=== PATIENT | male | born 1970 | race Two or more races ===

== ENCOUNTER 2021-01-07 12:27 | Inpatient (IN) | payer OTHER ==
--- NOTE | 2021-01-07 14:09 | XR ---
EXAMINATION TYPE: XR chest 1V portable DATE OF EXAM: 01/07/2021 COMPARISON: NONE HISTORY: Covid 19 positive, pneumonia TECHNIQUE: Single frontal view of the chest is obtained. FINDINGS: Bilateral patchy airspace disease is noted. There is no evident pneumothorax or pleural ef fusion. Cardiac and mediastinal silhouette within normal limits accounting for rotation. IMPRESSION: Findings consistent with patient's history of covid pneumonia.
[2021-01-07 14:25] LABS: ALT 28 U/L (4-49); AST 39 U/L (17-59); African American GFR (CKD) >90 (>60 ml/min/1.73 sqM); Albumin 3.7 g/dL (3.5-5.0); Alkaline Phosphatase 66 U/L (38-126); Anion Gap 10 mmol/L; Blood Urea Nitrogen 17 mg/dL (9-20); Calcium 8.8 mg/dL (8.4-10.2); Carbon Dioxide 28 mmol/L (22-30); Chloride 100 mmol/L (98-107); Glucose 124 mg/dL (74-99); LDH 1089 U/L (313-618); Magnesium 2.6 mg/dL (1.6-2.3); Non-African American GFR(CKD) >90 (>60 ml/min/1.73 sqM); Potassium 3.3 mmol/L (3.5-5.1); Sodium 138 mmol/L (137-145); Total Bilirubin 1.1 mg/dL (0.2-1.3); Total Protein 6.7 g/dL (6.3-8.2)
--- NOTE | 2021-01-07 14:26 | ED ---
General Adult HPI - General Chief complaint: Shortness of Breath Stated complaint: DEVORA,Covid Positive Source: patient Mode of arrival: ambulatory Limitations: no limitations - History of Present Illness Initial comments: 50-year-old male presents to the emergency room for a chief complaint of covid symptoms. Patient states that he tested positive for coronavirus 9 ago and had symptoms developed about 12 days ago. States this started as GI symptoms and then progressed to upper respiratory symptoms. For the past 2 days patient has felt short of breath. In the waiting room patient was found to be at 84% room air and was started on oxygen at 4 L keeping him around 92%. Patient is not immunized nor did he receive antibodies.Patient has no other complaints at this time including chest pain, abdominal pain, nausea or vomiting, headache, or visual changes. - Related Data Home Medications Medication Instructions Recorded Confirmed Ascorbic Acid [Vitamin C] 1,000 mg PO DAILY 01/07/21 01/07/21 Ferrous Sulfate [Feosol] 325 mg PO DAILY 01/07/21 01/07/21 Multivitamins, Thera [Multivitamin 1 tab PO DAILY 01/07/21 01/07/21 (formulary)] Naproxen 500 mg PO BID 01/07/21 01/07/21 Omeprazole [PriLOSEC] 20 mg PO AC-BID 01/07/21 01/07/21 Sildenafil Citrate [Viagra] 50 mg PO DAILY PRN 01/07/21 01/07/21 Zinc 50 mg PO DAILY 01/07/21 01/07/21 amLODIPine BESYLATE/BENAZEPRIL 2 tab PO DAILY 01/07/21 01/07/21 [amLODIPine BESYLATE/BENAZEPRIL 5-10 mg] Allergies Allergy/AdvReac Type Severity Reaction Status Date / Time No Known Allergies Allergy Verified 01/07/21 14:58 Review of Systems ROS Statement: Those systems with pertinent positive or pertinent negative responses have been documented in the HPI. ROS Other: All systems not noted in ROS Statement are negative. Past Medical History Past Medical History: Hypertension Past Surgical History: No Surgical Hx Reported Past Psychological History: No Psychological Hx Reported Smoking Status: Former smoker Past Alcohol Use History: None Reported Past Drug Use History: None Reported - Past Family History Father Family Medical History: Unable to Obtain Mother Family Medical History: COPD Additional Family Medical History / Comment(s): smoking, pneumonia General Exam Limitations: no limitations General appearance: alert, in no apparent distress Head exam: Present: atraumatic Eye exam: Present: normal appearance, PERRL, EOMI. Absent: scleral icterus, conjunctival injection ENT exam: Present: normal exam, mucous membranes moist Neck exam: Present: normal inspection, full ROM. Absent: tenderness Respiratory exam: Present: normal lung sounds bilaterally. Absent: respiratory distress, wheezes Cardiovascular Exam: Present: regular rate, normal rhythm, normal heart sounds GI/Abdominal exam: Present: soft, normal bowel sounds. Absent: distended, tenderness Neurological exam: Present: alert Course Vital Signs 01/07/21 01/07/21 01/07/21 12:57 13:03 17:09 Temperature 97.9 F 98.4 F Pulse Rate 86 Respiratory 18 22 Rate Blood Pressure 132/82 Blood Pressure 132/86 [Left Arm] O2 Sat by Pulse 84 L 91 L 91 L Oximetry Medical Decision Making - Medical Decision Making Upon presentation patient is 84% on room air. Currently requiring 4 L. Patient had an outpatient positive Covid test. This will be repeated today. Chest x- ray does show atypical Pneumonia. CMP does reveal hypokalemia, will be replaced orally. Patient will need to be admitted for oxygenation and monitoring - Lab Data Result diagrams: 01/07/21 13:56 01/07/21 13:56 Lab Results 01/07/21 01/07/21 01/07/21 Range/Units 13:56 13:56 13:56 WBC 10.0 (3.8-10.6) k/uL RBC 4.64 (4.30-5.90) m/uL Hgb 15.6 (13.0-17.5) gm/dL Hct 46.1 (39.0-53.0) % MCV 99.3 (80.0-100.0) fL MCH 33.6 (25.0-35.0) pg MCHC 33.8 (31.0-37.0) g/dL RDW 12.2 (11.5-15.5) % Plt Count 173 (150-450) k/uL MPV 8.2 Neutrophils % 92 % Lymphocytes % 5 % Monocytes % 3 % Eosinophils % 0 % Basophils % 0 % Neutrophils # 9.2 H (1.3-7.7) k/uL Lymphocytes # 0.5 L (1.0-4.8) k/uL Monocytes # 0.3 (0-1.0) k/uL Eosinophils # 0.0 (0-0.7) k/uL Basophils # 0.0 (0-0.2) k/uL PT 10.5 (9.0-12.0) sec INR 1.0 (<1.2) APTT 25.9 (22.0-30.0) sec Sodium 138 (137-145) mmol/L Potassium 3.3 L (3.5-5.1) mmol/L Chloride 100 (98-107) mmol/L Carbon Dioxide 28 (22-30) mmol/L Anion Gap 10 mmol/L BUN 17 (9-20) mg/dL Creatinine 0.88 (0.66-1.25) mg/dL Est GFR (CKD-EPI)AfAm >90 (>60 ml/min/1.73 sqM) Est GFR (CKD-EPI)NonAf >90 (>60 ml/min/1.73 sqM) Glucose 124 H (74-99) mg/dL Plasma Lactic Acid Kishor (0.7-2.0) mmol/L Calcium 8.8 (8.4-10.2) mg/dL Magnesium 2.6 H (1.6-2.3) mg/dL Ferritin 712.0 H (22.0-322.0) ng/mL Total Bilirubin 1.1 (0.2-1.3) mg/dL AST 39 (17-59) U/L ALT 28 (4-49) U/L Alkaline Phosphatase 66 (38-126) U/L Lactate Dehydrogenase 1089 H (313-618) U/L C-Reactive Protein 20.5 H (<1.0) mg/dL Total Protein 6.7 (6.3-8.2) g/dL Albumin 3.7 (3.5-5.0) g/dL Coronavirus (PCR) (Not Detectd) 01/07/21 01/07/21 Range/Units 13:56 14:38 WBC (3.8-10.6) k/uL RBC (4.30-5.90) m/uL Hgb (13.0-17.5) gm/dL Hct (39.0-53.0) % MCV (80.0-100.0) fL MCH (25.0-35.0) pg MCHC (31.0-37.0) g/dL RDW (11.5-15.5) % Plt Count (150-450) k/uL MPV Neutrophils % % Lymphocytes % % Monocytes % % Eosinophils % % Basophils % % Neutrophils # (1.3-7.7) k/uL Lymphocytes # (1.0-4.8) k/uL Monocytes # (0-1.0) k/uL Eosinophils # (0-0.7) k/uL Basophils # (0-0.2) k/uL PT (9.0-12.0) sec INR (<1.2) APTT (22.0-30.0) sec Sodium (137-145) mmol/L Potassium (3.5-5.1) mmol/L Chloride (98-107) mmol/L Carbon Dioxide (22-30) mmol/L Anion Gap mmol/L BUN (9-20) mg/dL Creatinine (0.66-1.25) mg/dL Est GFR (CKD-EPI)AfAm (>60 ml/min/1.73 sqM) Est GFR (CKD-EPI)NonAf (>60 ml/min/1.73 sqM) Glucose (74-99) mg/dL Plasma Lactic Acid Kishor 1.9 (0.7-2.0) mmol/L Calcium (8.4-10.2) mg/dL Magnesium (1.6-2.3) mg/dL Ferritin (22.0-322.0) ng/mL Total Bilirubin (0.2-1.3) mg/dL AST (17-59) U/L ALT (4-49) U/L Alkaline Phosphatase (38-126) U/L Lactate Dehydrogenase (313-618) U/L C-Reactive Protein (<1.0) mg/dL Total Protein (6.3-8.2) g/dL Albumin (3.5-5.0) g/dL Coronavirus (PCR) Detected A (Not Detectd) Disposition Clinical Impression: Dyspnea, COVID, Pneumonia due to COVID-19 virus, Acute respiratory failure with hypoxia Disposition: ADMITTED IP TO THIS HOSP Is patient prescribed a controlled substance at d/c from ED?: No Time of Disposition: 14:51
[2021-01-07 14:33] LABS: Partial Thromboplastin Time 25.9 sec (22.0-30.0); Prothrombin Time 10.5 sec (9.0-12.0)
[2021-01-07 14:43] LABS: C Reactive Protein 20.5 mg/dL (<1.0)
[2021-01-07] MEDS ORDERED: POTASSIUM CHLORIDE ER 20 MEQ TAB.ER PO STA (14:50)
[2021-01-07] MEDS ORDERED: NALOXONE 0.4 MG/ML 1 ML VIAL IV PRN (14:52)
--- NOTE | 2021-01-07 15:16 | P.HPIM ---
History of Present Illness This is a pleasant 50 years old male with past medical history of hypertension. Presents because of dyspnea of 2 days' duration. Patient is not vaccinated. He follows up with the [place] [facility]. Patient states that he was diagnosed with Covid on the after he had fever with his for 2-3 days. However over the last 2 days he started having occasional cough and with dyspnea but no chest pain. No diarrhea. No urinary symptoms. On admission he is saturating 84% on room air 91% on 3 L oxygen via nasal cannula. INR is 1.0. Sodium 138, potassium 3.3, creatinine 0.8. LDH is elevated at 1089 and C-reactive protein 20.5 chest x-ray: Bilateral pneumonia Review of Systems CONSTITUTIONAL: No fever, no malaise, no fatigue. HEENT: No recent visual problems or hearing problems. Denied any sore throat. CARDIOVASCULAR: No orthopnea, PND, no palpitations, no syncope. PULMONARY: No chest wall tenderness, no hemoptysis. GASTROINTESTINAL: No diarrhea, no nausea, no vomiting, no abdominal pain. Normoactive bowel sounds. NEUROLOGICAL: No headaches, no weakness, no numbness. HEMATOLOGICAL: Denies any bleeding or petechiae. GENITOURINARY: Denies any burning micturition, frequency, or urgency. MUSCULOSKELETAL/RHEUMATOLOGICAL: Denies any joint pain, swelling, or any muscle pain. ENDOCRINE: Denies any polyuria or polydipsia. Past Medical History Past Medical History: Hypertension Past Surgical History: No Surgical Hx Reported Past Psychological History: No Psychological Hx Reported Smoking Status: Former smoker Past Alcohol Use History: None Reported Past Drug Use History: None Reported Medications and Allergies Home Medications Medication Instructions Recorded Confirmed Type Ascorbic Acid [Vitamin C] 1,000 mg PO DAILY 01/07/21 01/07/21 History Ferrous Sulfate [Feosol] 325 mg PO DAILY 01/07/21 01/07/21 History Multivitamins, Thera [Multivitamin 1 tab PO DAILY 01/07/21 01/07/21 History (formulary)] Naproxen 500 mg PO BID 01/07/21 01/07/21 History Omeprazole [PriLOSEC] 20 mg PO AC-BID 01/07/21 01/07/21 History Sildenafil Citrate [Viagra] 50 mg PO DAILY PRN 01/07/21 01/07/21 History Zinc 50 mg PO DAILY 01/07/21 01/07/21 History amLODIPine BESYLATE/BENAZEPRIL 2 tab PO DAILY 01/07/21 01/07/21 History [amLODIPine BESYLATE/BENAZEPRIL 5-10 mg] Allergies Allergy/AdvReac Type Severity Reaction Status Date / Time No Known Allergies Allergy Verified 01/07/21 14:58 Physical Exam Vitals: Vital Signs Temp Pulse Resp BP Pulse Ox 01/07/21 13:03 91 L 01/07/21 12:57 97.9 F 86 18 132/82 84 L Intake and Output 01/07/21 01/07/21 01/07/21 06:59 14:59 22:59 Other: Weight 99.79 kg GENERAL: The patient is alert and oriented x3, not in any acute distress. Well developed, well nourished. HEENT: Pupils are round and equally reacting to light. EOMI. No scleral icterus. No conjunctival pallor. Normocephalic, atraumatic. No pharyngeal erythema. No thyromegaly. CARDIOVASCULAR: S1 and S2 present. No murmurs, rubs, or gallops. -PULMONARY: Chest is clear to auscultation, no wheezing. Bilateral crepitation ABDOMEN: Soft, nontender, nondistended, normoactive bowel sounds. No palpable organomegaly. MUSCULOSKELETAL: No joint swelling or deformity. EXTREMITIES: No cyanosis, clubbing, or pedal edema. NEUROLOGICAL: Gross neurological examination did not reveal any focal deficits. SKIN: No rashes. No petechiae Results CBC & Chem 7: 01/07/21 13:56 Labs: Abnormal Lab Results - Last 24 Hours (Table) 01/07/21 01/07/21 Range/Units 13:56 14:38 Potassium 3.3 L (3.5-5.1) mmol/L Glucose 124 H (74-99) mg/dL Magnesium 2.6 H (1.6-2.3) mg/dL Lactate Dehydrogenase 1089 H (313-618) U/L C-Reactive Protein 20.5 H (<1.0) mg/dL Coronavirus (PCR) Detected A (Not Detectd) Assessment and Plan Assessment: Acute bilateral covid pneumonia Acute hypoxic respiratory failure Increase inflammatory markers Plan: THis is a pleasant 50 years old male who presents with Covid pneumonia continue with multiple vitamins, vitamin C, D and zinc Continue with dexamethasone Pulmonary team consult Labs and medication were reviewed.. Continue same treatment. Continue with symptomatic treatment. Resume home medication. Monitor lytes and vitals. DVT and GI prophylaxis. Further recommendations depends on the clinical course of the patient DVT prophylaxis: Subcutaneous heparin GI Prophylaxis: Pepcid PT/OT: Pending Prognosis is guarded
[2021-01-07 15:22] LABS: Basophils % (A) 0 %; Eosinophils % (A) 0 %; HCT 46.1 % (39.0-53.0); HGB 15.6 gm/dL (13.0-17.5); Lymphocytes # (A) 0.5 k/uL (1.0-4.8); Lymphocytes % (A) 5 %; MCH 33.6 pg (25.0-35.0); MCHC 33.8 g/dL (31.0-37.0); MCV 99.3 fL (80.0-100.0); Mean Platelet Volume 8.2; Monocytes # (A) 0.3 k/uL (0-1.0); Monocytes % (A) 3 %; Neutrophils # (A) 9.2 k/uL (1.3-7.7); Neutrophils % (A) 92 %; Platelet Count 173 k/uL (150-450); RBC 4.64 m/uL (4.30-5.90); RDW 12.2 % (11.5-15.5)
[2021-01-07] MEDS: SODIUM CHLORIDE 0.9% 1,000 ML IV SCH (17:38)
[2021-01-07] MEDS: NAPROXEN 250 MG TAB PO SCH (21:54)
[2021-01-07] MEDS: CHOLECALCIFEROL 25 MCG (1000 IU) TABLET PO SCH (21:54)
[2021-01-07] MEDS: DEXAMETHASONE SOD PHOSPHATE 10 MG/ML 1 ML VIAL IV SCH (21:55)
[2021-01-07] MEDS: ASCORBIC ACID 500 MG TAB PO SCH (21:55)
[2021-01-07] MEDS: ENOXAPARIN 40 MG/0.4 ML SYRINGE SQ SCH (21:55)
[2021-01-08] MEDS: DEXAMETHASONE SOD PHOSPHATE 10 MG/ML 1 ML VIAL IV SCH (08:14)
[2021-01-08] MEDS: ENOXAPARIN 40 MG/0.4 ML SYRINGE SQ SCH (08:14)
[2021-01-08] MEDS: FERROUS SULFATE 325 MG TAB PO SCH (08:14)
--- NOTE | 2021-01-08 08:15 | XR ---
EXAMINATION TYPE: XR chest 1V DATE OF EXAM: 01/08/2021 COMPARISON: Chest x-ray 01/07/2021 HISTORY: Shortness of breath TECHNIQUE: Single frontal view of the chest is obtained. FINDINGS: Bilateral airspace disease is again noted. There is no evident pneumothorax or pleural eff usion. Cardiomediastinal silhouette is stable. IMPRESSION: Correlate for pneumonia
[2021-01-08] MEDS: NAPROXEN 250 MG TAB PO SCH ×2 (08:16→19:50)
[2021-01-08] MEDS: MULTIVITAMINS, THERA 1 EACH TAB PO SCH (08:17)
[2021-01-08] MEDS: ASCORBIC ACID 500 MG TAB PO SCH (08:17)
[2021-01-08] MEDS: CHOLECALCIFEROL 25 MCG (1000 IU) TABLET PO SCH (08:17)
[2021-01-08] MEDS: ZINC SULFATE 220 MG CAP PO SCH (08:18)
[2021-01-08] MEDS: PANTOPRAZOLE 40 MG TABLET PO SCH (08:18)
[2021-01-08] MEDS: lisinopriL 20 MG TAB PO SCH (08:18)
[2021-01-08] MEDS: amLODIPine 10 MG TAB PO SCH (08:18)
[2021-01-08] MEDS ORDERED: ASCORBIC ACID 500 MG TAB PO SCH (09:00)
[2021-01-08] MEDS ORDERED: FAMOTIDINE 20 MG TAB PO SCH (09:00)
--- NOTE | 2021-01-08 12:47 | P.PN ---
Subjective This is a pleasant 50 years old male with past medical history of hypertension. Presents because of dyspnea of 2 days' duration. Patient is not vaccinated. He follows up with the [place] clinic. Patient states that he was diagnosed with Covid on the after he had fever with his for 2-3 days. However over the last 2 days he started having occasional cough and with dyspnea but no chest pain. No diarrhea. No urinary symptoms. On admission he is saturating 84% on room air 91% on 3 L oxygen via nasal cannula. INR is 1.0. Sodium 138, potassium 3.3, creatinine 0.8. LDH is elevated at 1089 and C-reactive protein 20.5 chest x-ray: Bilateral pneumonia 01/08/2021 Patient is with bilateral Covid pneumonia. Tachypneic and dyspneic which is looks slightly worse compared to yesterday. Saturating the same 4 L at 91% saturation. He is afebrile today D-dimer is negative at 0.5. Chest x-ray showing bilateral pneumonia Remains on dexamethasone and multiple vitamins Discussed the case with pulmonary team today Objective - Vital Signs Vital signs: Vital Signs Temp 98.2 F 01/08/21 10:41 Pulse 76 01/08/21 10:41 Resp 19 01/08/21 10:41 BP 114/75 01/08/21 10:41 Pulse Ox 91 L 01/08/21 10:41 Intake & Output 01/07/21 01/08/21 01/08/21 18:59 06:59 18:59 Weight 99.79 kg Other: Voiding Method Toilet # Voids 2 - Exam GENERAL: The patient is alert and oriented x3, not in any acute distress. Well developed, well nourished. HEENT: Pupils are round and equally reacting to light. EOMI. No scleral icterus. No conjunctival pallor. Normocephalic, atraumatic. No pharyngeal erythema. No thyromegaly. CARDIOVASCULAR: S1 and S2 present. No murmurs, rubs, or gallops. -PULMONARY: Chest is clear to auscultation, no wheezing./ bilateral indication ABDOMEN: Soft, nontender, nondistended, normoactive bowel sounds. No palpable organomegaly. MUSCULOSKELETAL: No joint swelling or deformity. EXTREMITIES: No cyanosis, clubbing, or pedal edema. NEUROLOGICAL: Gross neurological examination did not reveal any focal deficits. SKIN: No rashes. no petechiae. - Labs CBC & Chem 7: 01/07/21 13:56 01/07/21 13:56 Labs: Abnormal Lab Results - Last 24 Hours (Table) 01/07/21 01/07/21 01/07/21 Range/Units 13:56 13:56 14:38 Neutrophils # 9.2 H (1.3-7.7) k/uL Lymphocytes # 0.5 L (1.0-4.8) k/uL Potassium 3.3 L (3.5-5.1) mmol/L Glucose 124 H (74-99) mg/dL Magnesium 2.6 H (1.6-2.3) mg/dL Ferritin 712.0 H (22.0-322.0) ng/mL Lactate Dehydrogenase 1089 H (313-618) U/L C-Reactive Protein 20.5 H (<1.0) mg/dL Coronavirus (PCR) Detected A (Not Detectd) Assessment and Plan Assessment: Acute bilateral covid pneumonia Acute hypoxic respiratory failure Increase inflammatory markers Plan: THis is a pleasant 50 years old male who presents with Covid pneumonia continue with multiple vitamins, vitamin C, D and zinc Continue with dexamethasone Pulmonary team consult Labs and medication were reviewed.. Continue same treatment. Continue with symptomatic treatment. Resume home medication. Monitor lytes and vitals. DVT and GI prophylaxis. Further recommendations depends on the clinical course of the patient DVT prophylaxis: Subcutaneous heparin GI Prophylaxis: Pepcid PT/OT: Pending Prognosis is guarded
--- NOTE | 2021-01-08 14:28 | P.CNPUL ---
History of Present Illness Consult date: 01/08/21 Requesting physician: Ap Orozco Reason for consult: dyspnea, hypoxemia, pneumonia, abnormal CXR/CT Chief complaint: Dyspnea, hypoxia, COVID-19 pneumonia History of present illness: 50-year-old male patient with past medical history of hypertension, former smoker, who came into the emergency department on 01/07/2021 with complaints of worsening shortness of breath the past 2 days. Patient was diagnosed with COVID-19 on 12/30/2020 after he developed symptoms of fever, chills. Patient's is also COVID positive. In the last few days patient also reported occasional cough, dyspnea, but no complaints of chest pain, no abdominal pain, no nausea or diarrhea. On presentation patient's O2 saturation was 84% on room air, he was placed on supplement oxygen at 3 L, his chest x-ray shows some bilateral patchy airspace disease. Admission blood work showed white blood cell count of 10, hemoglobin of 15.6, INR of 1.0, d-dimer is 0.57, potassium is 3.3, the rest of electrolytes and renal profile were all within normal limits, lactic acid is 1.9, magnesium is 2.6, lactic acid was 1.9, LDH was 1089, and CRP was 20.5, LFTs were within normal limits, patient tested positive for COVID-19 per PCR in the emergency department. He was started on Decadron at 6 mg daily, Lovenox 40 mg daily, multivitamins including vitamin C, zinc, and vitamin D. Review of Systems All systems: negative Constitutional: Denies chills, Denies fever Eyes: denies blurred vision, denies pain Ears, nose, mouth and throat: Denies headache, Denies sore throat Cardiovascular: Denies chest pain, Denies shortness of breath Respiratory: Reports dyspnea, Denies cough Gastrointestinal: Denies abdominal pain, Denies diarrhea, Denies nausea, Denies vomiting Musculoskeletal: Denies myalgias Integumentary: Denies pruritus, Denies rash Neurological: Denies numbness, Denies weakness Psychiatric: Denies anxiety, Denies depression Endocrine: Denies fatigue, Denies weight change Past Medical History Past Medical History: GERD/Reflux, Hypertension History of Any Multi-Drug Resistant Organisms: None Reported Past Surgical History: No Surgical Hx Reported Past Psychological History: No Psychological Hx Reported Smoking Status: Never smoker Past Alcohol Use History: None Reported Past Drug Use History: None Reported - Past Family History Father Family Medical History: Unable to Obtain Mother Family Medical History: COPD Additional Family Medical History / Comment(s): smoking, pneumonia Medications and Allergies Home Medications Medication Instructions Recorded Confirmed Type Ascorbic Acid [Vitamin C] 1,000 mg PO DAILY 01/07/21 01/07/21 History Ferrous Sulfate [Feosol] 325 mg PO DAILY 01/07/21 01/07/21 History Multivitamins, Thera [Multivitamin 1 tab PO DAILY 01/07/21 01/07/21 History (formulary)] Naproxen 500 mg PO BID 01/07/21 01/07/21 History Omeprazole [PriLOSEC] 20 mg PO AC-BID 01/07/21 01/07/21 History Sildenafil Citrate [Viagra] 50 mg PO DAILY PRN 01/07/21 01/07/21 History Zinc 50 mg PO DAILY 01/07/21 01/07/21 History amLODIPine BESYLATE/BENAZEPRIL 2 tab PO DAILY 01/07/21 01/07/21 History [amLODIPine BESYLATE/BENAZEPRIL 5-10 mg] Allergies Allergy/AdvReac Type Severity Reaction Status Date / Time No Known Allergies Allergy Verified 01/07/21 14:58 Physical Exam Vitals: Vital Signs Temp Pulse Resp BP Pulse Ox 01/08/21 10:41 98.2 F 76 19 114/75 91 L 01/08/21 05:40 98.1 F 77 16 131/87 90 L 01/08/21 02:17 98.5 F 76 17 132/81 90 L 01/07/21 20:00 98.1 F 78 18 105/62 89 L 01/07/21 17:12 98.4 F 82 18 132/86 90 L 01/07/21 17:09 98.4 F 22 132/86 91 L Intake and Output 01/07/21 01/08/21 01/08/21 22:59 06:59 14:59 Other: Voiding Method Toilet # Voids 2 Weight 99.79 kg GENERAL EXAM: Alert, pleasant, 50-year-old white male, on 4 L oxygen with pulse ox of 91% comfortable in no apparent distress. HEAD: Normocephalic/atraumatic. EYES: Normal reaction of pupils, equal size. Conjunctiva pink, sclera white. NOSE: Clear with pink turbinates. THROAT: No erythema or exudates. NECK: No masses, no JVD, no thyroid enlargement, no adenopathy. CHEST: No chest wall deformity. Symmetrical expansion. LUNGS: Equal air entry with bilateral crackles CVS: Regular rate and rhythm, normal S1 and S2, no gallops, no murmurs, no rubs ABDOMEN: Soft, nontender. No hepatosplenomegaly, normal bowel sounds, no guard ing or rigidity. EXTREMITIES: No clubbing, no edema, no cyanosis, 2+ pulses and upper and lower extremities. MUSCULOSKELETAL: Muscle strength and tone normal. SPINE: No scoliosis or deformity SKIN: No rashes CENTRAL NERVOUS SYSTEM: Alert and oriented -3. No focal deficits, tone is normal in all 4 extremities. PSYCHIATRIC: Alert and oriented -3. Appropriate affect. Intact judgment and insight. Results - Laboratory Findings CBC and BMP: 01/07/21 13:56 01/07/21 13:56 PT/INR, D-dimer PT 10.5 sec (9.0-12.0) 01/07/21 13:56 INR 1.0 (<1.2) 01/07/21 13:56 D-Dimer 0.57 mg/L FEU (<0.60) 01/08/21 06:46 Abnormal lab findings: Abnormal Labs 01/07/21 01/07/21 01/07/21 13:56 13:56 14:38 Neutrophils # 9.2 H Lymphocytes # 0.5 L Potassium 3.3 L Glucose 124 H Magnesium 2.6 H Ferritin 712.0 H Lactate Dehydrogenase 1089 H C-Reactive Protein 20.5 H Coronavirus (PCR) Detected A - Diagnostic Findings Chest x-ray: report reviewed, image reviewed Assessment and Plan Plan: Assessment: #1. Acute hypoxic respiratory failure related to COVID-19 pneumonia, with onset of symptoms 12 days prior to the presentation, and patient is outside the window for Remdesivir. Patient is not vaccinated for COVID-19 #2. Elevated inflammatory markers related to the above #3. Hypertension #4. Former smoker Plan: Patient is outside the window for Remdesivir We'll continue with Decadron 6 mg daily, continue with Lovenox Continue the COVID-19 vitamins We'll follow inflammatory markers, and d-dimer If worsening hypoxia, we will consider Baricitinib I performed a history & physical examination of the patient and discussed their management with my nurse practitioner, Colette Amos. I reviewed the nurse practitioner's note and agree with the documented findings and plan of care. Lung sounds are positive for diminished breath sounds throughout the lung villalobos. The findings and the impression was discussed with the patient. I attest to the documentation by the nurse practitioner. Time with Patient: Greater than 30
[2021-01-08] MEDS: SODIUM CHLORIDE 0.9% 1,000 ML IV SCH (16:02)
[2021-01-09] MEDS: PANTOPRAZOLE 40 MG TABLET PO SCH (09:41)
[2021-01-09] MEDS: CHOLECALCIFEROL 25 MCG (1000 IU) TABLET PO SCH (09:42)
[2021-01-09] MEDS: amLODIPine 10 MG TAB PO SCH (09:42)
[2021-01-09] MEDS: ASCORBIC ACID 500 MG TAB PO SCH (09:42)
[2021-01-09] MEDS: MULTIVITAMINS, THERA 1 EACH TAB PO SCH (09:42)
[2021-01-09] MEDS: lisinopriL 20 MG TAB PO SCH (09:42)
[2021-01-09] MEDS: FERROUS SULFATE 325 MG TAB PO SCH (09:42)
[2021-01-09] MEDS: DEXAMETHASONE SOD PHOSPHATE 10 MG/ML 1 ML VIAL IV SCH (09:42)
[2021-01-09] MEDS: ENOXAPARIN 40 MG/0.4 ML SYRINGE SQ SCH (09:42)
[2021-01-09] MEDS: ZINC SULFATE 220 MG CAP PO SCH (09:42)
[2021-01-09] MEDS: NAPROXEN 250 MG TAB PO SCH ×2 (10:27→22:30)
--- NOTE | 2021-01-09 11:38 | P.PN ---
Subjective This is a pleasant 50 years old male with past medical history of hypertension. Presents because of dyspnea of 2 days' duration. Patient is not vaccinated. He [facility]. Patient states that he was diagnosed with Covid on the after he had fever with his for 2-3 days. However over the last 2 days he started having occasional cough and with dyspnea but no chest pain. No diarrhea. No urinary symptoms. On admission he is saturating 84% on room air 91% on 3 L oxygen via nasal cannula. INR is 1.0. Sodium 138, potassium 3.3, creatinine 0.8. LDH is elevated at 1089 and C-reactive protein 20.5 chest x-ray: Bilateral pneumonia 01/08/2021 Patient is with bilateral Covid pneumonia. Tachypneic and dyspneic which is looks slightly worse compared to yesterday. Saturating the same 4 L at 91% saturation. He is afebrile today D-dimer is negative at 0.5. Chest x-ray showing bilateral pneumonia Remains on dexamethasone and multiple vitamins Discussed the case with pulmonary team today 01/09/2021 Patient remains on 4 L oxygen with saturation of 92% No labs or chest x-ray from today. Telemetry: No events Patient still on dexamethasone and vitamin C, D and zinc. Objective - Vital Signs Vital signs: Vital Signs Temp 98.0 F 01/09/21 10:17 Pulse 72 01/09/21 10:17 Resp 20 01/09/21 10:17 BP 132/79 01/09/21 10:17 Pulse Ox 92 L 01/09/21 10:17 Intake & Output 01/08/21 01/09/21 01/09/21 18:59 06:59 18:59 Other: Voiding Method Toilet Toilet # Voids 2 - Exam GENERAL: The patient is alert and oriented x3, not in any acute distress. Well developed, well nourished. HEENT: Pupils are round and equally reacting to light. EOMI. No scleral icterus. No conjunctival pallor. Normocephalic, atraumatic. No pharyngeal erythema. No thyromegaly. CARDIOVASCULAR: S1 and S2 present. No murmurs, rubs, or gallops. -PULMONARY: Chest is clear to auscultation, no wheezing./ bilateral indication ABDOMEN: Soft, nontender, nondistended, normoactive bowel sounds. No palpable organomegaly. MUSCULOSKELETAL: No joint swelling or deformity. EXTREMITIES: No cyanosis, clubbing, or pedal edema. NEUROLOGICAL: Gross neurological examination did not reveal any focal deficits. SKIN: No rashes. no petechiae. - Labs CBC & Chem 7: 01/07/21 13:56 01/07/21 13:56 Labs: Abnormal Lab Results - Last 24 Hours (Table) 01/07/21 Range/Units 13:56 Procalcitonin 0.50 H (0.02-0.09) ng/mL Assessment and Plan Assessment: Acute bilateral covid pneumonia Acute hypoxic respiratory failure Increase inflammatory markers Plan: THis is a pleasant 50 years old male who presents with Covid pneumonia continue with multiple vitamins, vitamin C, D and zinc Continue with dexamethasone Pulmonary team consult Labs and medication were reviewed.. Continue same treatment. Continue with symptomatic treatment. Resume home medication. Monitor lytes and vitals. DVT and GI prophylaxis. Further recommendations depends on the clinical course of the patient DVT prophylaxis: Subcutaneous heparin GI Prophylaxis: Pepcid PT/OT: Pending Prognosis is guarded
--- NOTE | 2021-01-09 13:32 | P.PN ---
Subjective Progress Note Date: 01/09/21 Principal diagnosis: COVID-19 pneumonia 50-year-old male patient with past medical history of hypertension, former smoker, who came into the emergency department on 01/07/2021 with complaints of worsening shortness of breath the past 2 days. Patient was diagnosed with COVID-19 on 12/30/2020 after he developed symptoms of fever, chills. Patient's is also COVID positive. In the last few days patient also reported occasional cough, dyspnea, but no complaints of chest pain, no abdominal pain, no nausea or diarrhea. On presentation patient's O2 saturation was 84% on room air, he was placed on supplement oxygen at 3 L, his chest x-ray shows some bilateral patchy airspace disease. Admission blood work showed white blood cell count of 10, hemoglobin of 15.6, INR of 1.0, d-dimer is 0.57, potassium is 3.3, the rest of electrolytes and renal profile were all within normal limits, lactic acid is 1.9, magnesium is 2.6, lactic acid was 1.9, LDH was 1089, and CRP was 20.5, LFTs were within normal limits, patient tested positive for COVID-19 per PCR in the emergency department. He was started on Decadron at 6 mg daily, Lovenox 40 mg daily, multivitamins including vitamin C, zinc, and vitamin D. On January 09, 2021 patient seen in follow-up on medical surgical floor. Overall he states he is feeling better, breathing easier, at times he is coughing and bringing up small amount of blood-tinged sputum. He remains on Decadron 6 mg daily, he was empirically placed on Rocephin for borderline pro calcitonin level of 0.50. No fever or chills overnight, he remains on the same 4 L of oxygen his pulse ox is 92-93%, his been getting up and walking in the room, tolerates activity fairly well. He has had no acute events overnight, his appetite is very good, no nausea vomiting or diarrhea, his labs are pending, patient remains on prophylactic dose Lovenox 40 mg daily. Objective - Vital Signs Vital signs: Vital Signs Temp 98.0 F 01/09/21 10:17 Pulse 72 01/09/21 10:17 Resp 20 01/09/21 10:17 BP 132/79 01/09/21 10:17 Pulse Ox 92 L 01/09/21 10:17 Intake & Output 01/08/21 01/09/21 01/09/21 18:59 06:59 18:59 Other: Voiding Method Toilet Toilet # Voids 2 - Exam GENERAL EXAM: Alert, pleasant, 50-year-old white male, on 4 L oxygen with pulse ox of 91% comfortable in no apparent distress. HEAD: Normocephalic/atraumatic. EYES: Normal reaction of pupils, equal size. Conjunctiva pink, sclera white. NOSE: Clear with pink turbinates. THROAT: No erythema or exudates. NECK: No masses, no JVD, no thyroid enlargement, no adenopathy. CHEST: No chest wall deformity. Symmetrical expansion. LUNGS: Equal air entry with bilateral crackles at bilateral bases, more so on the right CVS: Regular rate and rhythm, normal S1 and S2, no gallops, no murmurs, no rubs ABDOMEN: Soft, nontender. No hepatosplenomegaly, normal bowel sounds, no guarding or rigidity. EXTREMITIES: No clubbing, no edema, no cyanosis, 2+ pulses and upper and lower extremities. MUSCULOSKELETAL: Muscle strength and tone normal. SPINE: No scoliosis or deformity SKIN: No rashes CENTRAL NERVOUS SYSTEM: Alert and oriented -3. No focal deficits, tone is normal in all 4 extremities. PSYCHIATRIC: Alert and oriented -3. Appropriate affect. Intact judgment and insight. - Labs CBC & Chem 7: 01/07/21 13:56 01/07/21 13:56 Labs: Abnormal Lab Results - Last 24 Hours (Table) 01/07/21 Range/Units 13:56 Procalcitonin 0.50 H (0.02-0.09) ng/mL Assessment and Plan Plan: Assessment: #1. Acute hypoxic respiratory failure related to COVID-19 pneumonia, with onset of symptoms 12 days prior to the presentation, and patient is outside the window for Remdesivir. Patient is not vaccinated for COVID-19 #2. Elevated inflammatory markers related to the above #3. Hypertension #4. Former smoker #5. Elevated pro calcitonin, rule out possibility of superimposed bacterial infection, patient is currently on Rocephin, we'll send a sputum culture Plan: We'll continue with Decadron 6 mg daily, continue with Lovenox Continue the COVID-19 vitamins We'll follow inflammatory markers, and d-dimer No worsening dyspnea, no fever or chills, we'll send a sputum culture I performed a history & physical examination of the patient and discussed their management with my nurse practitioner, Colette Amos. I reviewed the nurse practitioner's note and agree with the documented findings and plan of care. Lung sounds are positive for diminished breath sounds throughout the lung villalobos. The findings and the impression was discussed with the patient. I attest to the documentation by the nurse practitioner. Time with Patient: Less than 30
[2021-01-09] MEDS: SODIUM CHLORIDE 0.9% 1,000 ML IV SCH (14:06)
[2021-01-10] MEDS: ZINC SULFATE 220 MG CAP PO SCH (07:40)
[2021-01-10] MEDS: FERROUS SULFATE 325 MG TAB PO SCH (07:40)
[2021-01-10] MEDS: PANTOPRAZOLE 40 MG TABLET PO SCH (07:41)
[2021-01-10] MEDS: MULTIVITAMINS, THERA 1 EACH TAB PO SCH (07:41)
[2021-01-10] MEDS: ASCORBIC ACID 500 MG TAB PO SCH (07:41)
[2021-01-10] MEDS: CHOLECALCIFEROL 25 MCG (1000 IU) TABLET PO SCH (07:42)
[2021-01-10] MEDS: BENAZEPRIL PO SCH (07:42)
[2021-01-10] MEDS: AMLODIPINE PO SCH (07:42)
[2021-01-10] MEDS: ENOXAPARIN 40 MG/0.4 ML SYRINGE SQ SCH (07:43)
[2021-01-10] MEDS: NAPROXEN 250 MG TAB PO SCH ×2 (07:43→21:11)
[2021-01-10] MEDS: DEXAMETHASONE SOD PHOSPHATE 10 MG/ML 1 ML VIAL IV SCH (07:44)
[2021-01-10 07:45] LABS: African American GFR (CKD) >90 (>60 ml/min/1.73 sqM); Blood Urea Nitrogen 19 mg/dL (9-20); C Reactive Protein 2.4 mg/dL (<1.0); Calcium 8.2 mg/dL (8.4-10.2); Carbon Dioxide 27 mmol/L (22-30); Glucose 104 mg/dL (74-99); LDH 902 U/L (313-618); Non-African American GFR(CKD) >90 (>60 ml/min/1.73 sqM)
[2021-01-10 08:04] LABS: Anion Gap 7 mmol/L; Chloride 103 mmol/L (98-107); Potassium 3.9 mmol/L (3.5-5.1); Sodium 137 mmol/L (137-145)
--- NOTE | 2021-01-10 12:37 | P.PN ---
Subjective Progress Note Date: 01/10/21 Principal diagnosis: COVID-19 pneumonia 50-year-old male patient with past medical history of hypertension, former smoker, who came into the emergency department on 01/07/2021 with complaints of worsening shortness of breath the past 2 days. Patient was diagnosed with COVID-19 on 12/30/2020 after he developed symptoms of fever, chills. Patient's is also COVID positive. In the last few days patient also reported occasional cough, dyspnea, but no complaints of chest pain, no abdominal pain, no nausea or diarrhea. On presentation patient's O2 saturation was 84% on room air, he was placed on supplement oxygen at 3 L, his chest x-ray shows some bilateral patchy airspace disease. Admission blood work showed white blood cell count of 10, hemoglobin of 15.6, INR of 1.0, d-dimer is 0.57, potassium is 3.3, the rest of electrolytes and renal profile were all within normal limits, lactic acid is 1.9, magnesium is 2.6, lactic acid was 1.9, LDH was 1089, and CRP was 20.5, LFTs were within normal limits, patient tested positive for COVID-19 per PCR in the emergency department. He was started on Decadron at 6 mg daily, Lovenox 40 mg daily, multivitamins including vitamin C, zinc, and vitamin D. On January 09, 2021 patient seen in follow-up on medical surgical floor. Overall he states he is feeling better, breathing easier, at times he is coughing and bringing up small amount of blood-tinged sputum. He remains on Decadron 6 mg daily, he was empirically placed on Rocephin for borderline pro calcitonin level of 0.50. No fever or chills overnight, he remains on the same 4 L of oxygen his pulse ox is 92-93%, his been getting up and walking in the room, tolerates activity fairly well. He has had no acute events overnight, his appetite is very good, no nausea vomiting or diarrhea, his labs are pending, patient remains on prophylactic dose Lovenox 40 mg daily. On 01/10/2021 patient seen in follow-up on medical surgical floor, he is currently on 4 L of oxygen with a pulse ox of 94%, he is afebrile, hemodynamically stable, this had no acute events overnight, he is breathing easier. He does get dyspneic with exertion, but no signs of any acute resp iratory distress, no compressive chest discomfort. No new chest x-ray today, his labs have been reviewed, electrolytes and renal profile are unremarkable, his LDH is improving and is down to 902, CRP is down to 2.4. His pro calcitonin level is 0.50. Patient remains on Rocephin, for empiric antibiotic coverage, he also continues on Decadron 6 mg daily, multivitamins, and prophylactic dose of Lovenox. His last TD from atenolol 2020 was within normal limits at 0.57. Objective - Vital Signs Vital signs: Vital Signs Temp 98.4 F 01/10/21 10:39 Pulse 70 01/10/21 10:39 Resp 18 01/10/21 10:39 BP 127/81 01/10/21 10:39 Pulse Ox 94 L 01/10/21 10:39 Intake & Output 01/09/21 01/10/21 01/10/21 18:59 06:59 18:59 Other: Voiding Method Toilet # Voids 3 1 - Exam GENERAL EXAM: Alert, pleasant, 50-year-old white male, on 4 L oxygen with pulse ox of 94% comfortable in no apparent distress. HEAD: Normocephalic/atraumatic. EYES: Normal reaction of pupils, equal size. Conjunctiva pink, sclera white. NOSE: Clear with pink turbinates. THROAT: No erythema or exudates. NECK: No masses, no JVD, no thyroid enlargement, no adenopathy. CHEST: No chest wall deformity. Symmetrical expansion. LUNGS: Equal air entry with bilateral crackles at bilateral bases, more so on the right CVS: Regular rate and rhythm, normal S1 and S2, no gallops, no murmurs, no rubs ABDOMEN: Soft, nontender. No hepatosplenomegaly, normal bowel sounds, no guarding or rigidity. EXTREMITIES: No clubbing, no edema, no cyanosis, 2+ pulses and upper and lower extremities. MUSCULOSKELETAL: Muscle strength and tone normal. SPINE: No scoliosis or deformity SKIN: No rashes CENTRAL NERVOUS SYSTEM: Alert and oriented -3. No focal deficits, tone is normal in all 4 extremities. PSYCHIATRIC: Alert and oriented -3. Appropriate affect. Intact judgment and insight. - Labs CBC & Chem 7: 01/07/21 13:56 01/10/21 06:45 Labs: Abnormal Lab Results - Last 24 Hours (Table) 01/10/21 Range/Units 06:45 Glucose 104 H (74-99) mg/dL Calcium 8.2 L (8.4-10.2) mg/dL Lactate Dehydrogenase 902 H (313-618) U/L C-Reactive Protein 2.4 H (<1.0) mg/dL Assessment and Plan Plan: Assessment: #1. Acute hypoxic respiratory failure related to COVID-19 pneumonia, with onset of symptoms 12 days prior to the presentation, and patient is outside the window for Remdesivir. Patient is not vaccinated for COVID-19 #2. Elevated inflammatory markers related to the above, improving #3. Hypertension #4. Former smoker #5. Elevated pro calcitonin, rule out possibility of superimposed bacterial infection, patient is currently on Rocephin, we'll send a sputum culture Plan: Clinically patient has remained stable, no worsening dyspnea or hypoxia, no fever or chills We'll send a sputum culture Follow-up will calcitonin Follow-up chest x-ray Follow-up d-dimer and inflammatory markers We'll continue with Decadron 6 mg daily, continue with Lovenox Continue the COVID-19 vitamins I performed a history & physical examination of the patient and discussed their management with my nurse practitioner, Colette Amos. I reviewed the nurse practitioner's note and agree with the documented findings and plan of care. Lung sounds are positive for diminished breath sounds throughout the lung villalobos. The findings and the impression was discussed with the patient. I attest to the documentation by the nurse practitioner. Time with Patient: Less than 30
[2021-01-10] MEDS: SODIUM CHLORIDE 0.9% 1,000 ML IV SCH (15:38)
[2021-01-10 18:23] VITALS: RESP 18
--- NOTE | 2021-01-10 18:23 | P.PN ---
Subjective This is a pleasant 50 years old male with past medical history of hypertension. Presents because of dyspnea of 2 days' duration. Patient is not vaccinated. He follows up with the [facility]. Patient states that he was diagnosed with Covid on the after he had fever with his for 2-3 days. However over the last 2 days he started having occasional cough and with dyspnea but no chest pain. No diarrhea. No urinary symptoms. On admission he is saturating 84% on room air 91% on 3 L oxygen via nasal cannula. INR is 1.0. Sodium 138, potassium 3.3, creatinine 0.8. LDH is elevated at 1089 and C-reactive protein 20.5 chest x-ray: Bilateral pneumonia 01/08/2021 Patient is with bilateral Covid pneumonia. Tachypneic and dyspneic which is looks slightly worse compared to yesterday. Saturating the same 4 L at 91% saturation. He is afebrile today D-dimer is negative at 0.5. Chest x-ray showing bilateral pneumonia Remains on dexamethasone and multiple vitamins Discussed the case with pulmonary team today 01/09/2021 Patient remains on 4 L oxygen with saturation of 92% No labs or chest x-ray from today. Telemetry: No events Patient still on dexamethasone and vitamin C, D and zinc. 01/10/2021 Patient clinically looks similar to the last 2 days, however he is able to sit up in chair since yesterday, his oxygen requirement lower to 2 L/m. Vitals are stable. LDH trending down 902, C-reactive protein down to 2.4. Poorcalcitonin is elevated at 0.50 and patient was started on Rocephin. D- dimer is negative. Chest x-ray showed no infiltrate slight pleural effusion. Patient remains on dexamethasone, vitamin C, D and zinc and ceftriaxone. He is also on Lovenox Repeat chest x-ray and labs tomorrow Objective - Vital Signs Vital signs: Vital Signs Temp 98.2 F 01/10/21 14:00 Pulse 72 01/10/21 14:00 Resp 16 01/10/21 14:00 BP 131/82 01/10/21 14:00 Pulse Ox 94 L 01/10/21 14:00 Intake & Output 01/09/21 01/10/21 01/10/21 18:59 06:59 18:59 Other: Voiding Method Toilet # Voids 3 1 - Exam GENERAL: The patient is alert and oriented x3, not in any acute distress. Well developed, well nourished. HEENT: Pupils are round and equally reacting to light. EOMI. No scleral icterus. No conjunctival pallor. Normocephalic, atraumatic. No pharyngeal erythema. No thyromegaly. CARDIOVASCULAR: S1 and S2 present. No murmurs, rubs, or gallops. -PULMONARY: Chest is clear to auscultation, no wheezing./ bilateral indication ABDOMEN: Soft, nontender, nondistended, normoactive bowel sounds. No palpable organomegaly. MUSCULOSKELETAL: No joint swelling or deformity. EXTREMITIES: No cyanosis, clubbing, or pedal edema. NEUROLOGICAL: Gross neurological examination did not reveal any focal deficits. SKIN: No rashes. no petechiae. - Labs CBC & Chem 7: 01/07/21 13:56 01/10/21 06:45 Labs: Abnormal Lab Results - Last 24 Hours (Table) 01/10/21 Range/Units 06:45 Glucose 104 H (74-99) mg/dL Calcium 8.2 L (8.4-10.2) mg/dL Lactate Dehydrogenase 902 H (313-618) U/L C-Reactive Protein 2.4 H (<1.0) mg/dL Microbiology - Last 24 Hours (Table) 01/10/21 09:55 Sputum Culture - Preliminary Sputum Assessment and Plan Assessment: Acute bilateral covid pneumonia with possible bacterial superinfection with tracheobronchitis Acute hypoxic respiratory failure Increase inflammatory markers Plan: THis is a pleasant 50 years old male who presents with Covid pneumonia continue with multiple vitamins, vitamin C, D and zinc Continue with dexamethasone Pulmonary team consult Continue ceftriaxone Labs and medication were reviewed.. Continue same treatment. Continue with sy mptomatic treatment. Resume home medication. Monitor lytes and vitals. DVT and GI prophylaxis. Further recommendations depends on the clinical course of the patient DVT prophylaxis: Subcutaneous Lovenox GI Prophylaxis: Pepcid Prognosis is guarded
[2021-01-11] MEDS: CHOLECALCIFEROL 25 MCG (1000 IU) TABLET PO SCH (07:45)
[2021-01-11] MEDS: ZINC SULFATE 220 MG CAP PO SCH (07:45)
[2021-01-11] MEDS: ASCORBIC ACID 500 MG TAB PO SCH (07:45)
[2021-01-11] MEDS: FERROUS SULFATE 325 MG TAB PO SCH (07:45)
[2021-01-11] MEDS: PANTOPRAZOLE 40 MG TABLET PO SCH (07:46)
[2021-01-11] MEDS: DEXAMETHASONE SOD PHOSPHATE 10 MG/ML 1 ML VIAL IV SCH (07:46)
[2021-01-11] MEDS: ENOXAPARIN 40 MG/0.4 ML SYRINGE SQ SCH (07:46)
[2021-01-11] MEDS: MULTIVITAMINS, THERA 1 EACH TAB PO SCH (07:46)
[2021-01-11] MEDS: BENAZEPRIL PO SCH (07:47)
[2021-01-11] MEDS: AMLODIPINE PO SCH (07:47)
[2021-01-11] MEDS: NAPROXEN 250 MG TAB PO SCH (07:47)
[2021-01-11 08:51] LABS: C Reactive Protein 1.4 mg/dL (<1.0)
[2021-01-11 10:09] VITALS: BP 129/85; PULSE 64; TEMP 98.2
--- NOTE | 2021-01-11 10:15 | XR ---
EXAMINATION TYPE: XR chest 1V portable DATE OF EXAM: 01/11/2021 COMPARISON: Chest x-ray 01/08/2021 HISTORY: Shortness of breath TECHNIQUE: Single frontal view of the chest is obtained. FINDINGS: Peripheral groundglass opacity and airspace disease is again noted without significant devyn nge. There is no evident pneumothorax or pleural effusion. Cardiac mediastinal silhouette shows a sim ilar appearance. Bones are unchanged. IMPRESSION: Correlate for pneumonia.
--- NOTE | 2021-01-11 13:26 | P.PN ---
Subjective Progress Note Date: 01/11/21 Principal diagnosis: COVID-19 pneumonia 50-year-old male patient with past medical history of hypertension, former smoker, who came into the emergency department on 01/07/2021 with complaints of worsening shortness of breath the past 2 days. Patient was diagnosed with COVID-19 on 12/30/2020 after he developed symptoms of fever, chills. Patient's is also COVID positive. In the last few days patient also reported occasional cough, dyspnea, but no complaints of chest pain, no abdominal pain, no nausea or diarrhea. On presentation patient's O2 saturation was 84% on room air, he was placed on supplement oxygen at 3 L, his chest x-ray shows some bilateral patchy airspace disease. Admission blood work showed white blood cell count of 10, hemoglobin of 15.6, INR of 1.0, d-dimer is 0.57, potassium is 3.3, the rest of electrolytes and renal profile were all within normal limits, lactic acid is 1.9, magnesium is 2.6, lactic acid was 1.9, LDH was 1089, and CRP was 20.5, LFTs were within normal limits, patient tested positive for COVID-19 per PCR in the emergency department. He was started on Decadron at 6 mg daily, Lovenox 40 mg daily, multivitamins including vitamin C, zinc, and vitamin D. On January 09, 2021 patient seen in follow-up on medical surgical floor. Overall he states he is feeling better, breathing easier, at times he is coughing and bringing up small amount of blood-tinged sputum. He remains on Decadron 6 mg daily, he was empirically placed on Rocephin for borderline pro calcitonin level of 0.50. No fever or chills overnight, he remains on the same 4 L of oxygen his pulse ox is 92-93%, his been getting up and walking in the room, tolerates activity fairly well. He has had no acute events overnight, his appetite is very good, no nausea vomiting or diarrhea, his labs are pending, patient remains on prophylactic dose Lovenox 40 mg daily. On 01/10/2021 patient seen in follow-up on medical surgical floor, he is currently on 4 L of oxygen with a pulse ox of 94%, he is afebrile, hemodynamically stable, this had no acute events overnight, he is breathing easier. He does get dyspneic with exertion, but no signs of any acute resp iratory distress, no compressive chest discomfort. No new chest x-ray today, his labs have been reviewed, electrolytes and renal profile are unremarkable, his LDH is improving and is down to 902, CRP is down to 2.4. His pro calcitonin level is 0.50. Patient remains on Rocephin, for empiric antibiotic coverage, he also continues on Decadron 6 mg daily, multivitamins, and prophylactic dose of Lovenox. His last TD from atenolol 5 2020 was within normal limits at 0.57. On 01/11/2021 patient is seen in follow-up on medical surgical floor. He is currently down to 1-2 L with a pulse ox of 94-95%, no fever or chills, signs have been stable, breathing has been nonlabored, today's chest x-ray showing peripheral groundglass opacities in airspace disease. Today's d-dimer is 0.93, LDH is 978, CRP is 1.4. Patient continues on Rocephin for empiric coverage, sputum culture has been sent and showed rare PMNs, moderate gram-negative bacilli, few budding yeast. Patient has been walking in the room, tolerating activity well. His lungs are clear to auscultation, no wheezing. Patient is requesting to go home today. Objective - Vital Signs Vital signs: Vital Signs Temp 98.2 F 01/11/21 09:30 Pulse 64 01/11/21 09:30 Resp 18 01/11/21 09:30 BP 129/85 01/11/21 09:30 Pulse Ox 95 01/11/21 09:30 Intake & Output 01/10/21 01/11/21 01/11/21 18:59 06:59 18:59 Intake Total 240 Balance 240 Intake: Oral 240 Other: Voiding Method Toilet Toilet Toilet # Voids 6 0 # Bowel Movements 0 - Exam GENERAL EXAM: Alert, pleasant, 50-year-old white male, on 2 L oxygen with pulse ox of 95% comfortable in no apparent distress. HEAD: Normocephalic/atraumatic. EYES: Normal reaction of pupils, equal size. Conjunctiva pink, sclera white. NOSE: Clear with pink turbinates. THROAT: No erythema or exudates. NECK: No masses, no JVD, no thyroid enlargement, no adenopathy. CHEST: No chest wall deformity. Symmetrical expansion. LUNGS: Equal air entry with bilateral crackles at bilateral bases, more so on the right CVS: Regular rate and rhythm, normal S1 and S2, no gallops, no murmurs, no rubs ABDOMEN: Soft, nontender. No hepatosplenomegaly, normal bowel sounds, no guarding or rigidity. EXTREMITIES: No clubbing, no edema, no cyanosis, 2+ pulses and upper and lower extremities. MUSCULOSKELETAL: Muscle strength and tone normal. SPINE: No scoliosis or deformity SKIN: No rashes CENTRAL NERVOUS SYSTEM: Alert and oriented -3. No focal deficits, tone is normal in all 4 extremities. PSYCHIATRIC: Alert and oriented -3. Appropriate affect. Intact judgment and insight. - Labs CBC & Chem 7: 01/07/21 13:56 01/10/21 06:45 Labs: Abnormal Lab Results - Last 24 Hours (Table) 01/11/21 01/11/21 Range/Units 05:39 05:39 D-Dimer 0.93 H (<0.60) mg/L FEU Lactate Dehydrogenase 978 H (313-618) U/L C-Reactive Protein 1.4 H (<1.0) mg/dL Microbiology - Last 24 Hours (Table) 01/10/21 09:55 Gram Stain - Preliminary Sputum Sputum Culture - Preliminary Assessment and Plan Plan: Assessment: #1. Acute hypoxic respiratory failure related to COVID-19 pneumonia, with onset of symptoms 12 days prior to the presentation, and patient is outside the window for Remdesivir. Patient is not vaccinated for COVID-19 #2. Elevated inflammatory markers related to the above, improving #3. Hypertension #4. Former smoker #5. Elevated pro calcitonin, rule out possibility of superimposed bacterial infection, patient is currently on Rocephin, we'll send a sputum culture Plan: Patient has remained stable from pulmonary perspective Could consider for discharge home from our standpoint Obtain home oxygen evaluation Patient can finish outpatient oral course of antibiotics in the form of Ceftin 500 mg twice daily for 7 days Continue Decadron and complete the 10 day course I performed a history & physical examination of the patient and discussed their management with my nurse practitioner, Colette Amos. I reviewed the nurse practitioner's note and agree with the documented findings and plan of care. Lung sounds are positive for diminished breath sounds throughout the lung villalobos. The findings and the impression was discussed with the patient. I attest to the documentation by the nurse practitioner. Time with Patient: Less than 30
--- NOTE | 2021-01-11 20:35 | P.DS ---
Providers Date of admission: 01/07/21 14:52 Attending physician: Luz Lopez Consults: 01/07/21 14:52 Consult Physician Routine Consulting Provider: Porfirio Lehman Consult Reason/Comments: COVID +, Acute hypoxic respiratory failure Do you want consulting provider notified?: Yes Primary care physician: [facility] Hospital Course: Diagnoses: Acute bilateral covid pneumonia with possible bacterial superinfection with tracheobronchitis Acute hypoxic respiratory failure Increase inflammatory markers Hospital course: This is a pleasant 50 years old male with past medical history of hypertension. Presents because of dyspnea of 2 days' duration. Patient is not vaccinated. He [facility] up with [facility]. Patient states that he was diagnosed with Covid on the after he had fever with his for 2-3 days. However over the last 2 days he started having occasional cough and with dyspnea but no chest pain. No diarrhea. No urinary symptoms. On admission he is saturating 84% on room air 91% on 3 L oxygen via nasal cannula.chest x-ray: Bilateral pneumonia Pelvic this was positive and patient was diagnosed with bilateral Covid pneumonia. He was treated with dexamethasone, vitamin C, vitamin D, zinc, ceftriaxone. His abdominal hypoxia on admission start improving and oxygen requirement went down today from 4 L/m down to 2 L/m. Patient reports improvement in his symptoms recur patient has been followed closely by pulmonary team who cleared him for discharge today. Patient feels better and he agrees to go home. He denies other symptoms. No chest pain or diarrhea or abdominal pain. No change in urine or bowel habits. No more fever. [facility] discharge with home oxygen Patient was cleared for discharge by pulmonary team Problems and management plan were discussed with the patient and he verbalized understanding and acceptance Patient was found stable and can be discharged home however he needs follow-up as an outpatient. Patient was instructed to follow up with PCP at the [facility] within one week and patient agree Patient was instructed to follow up with qm consultant Dr. Weller and he agrees with the appointments made for him on 02/08 stating he will follow-up Physical exam Gen: patient is a AAOx3, no distress CVS: S1-S2, RRR, no murmur Lungs: B/L CTA, no wheezing Abdomen: soft, no distention, no tenderness, positive bowel sounds Extremity: no leg edema or induration Time spent more than 35 minutes Plan - Discharge Summary Discharge Rx Participant: No New Discharge Prescriptions: New Cefuroxime Axetil [Ceftin] 500 mg PO BID 7 Days #14 tab Dexamethasone [Decadron] 6 mg PO DAILY 6 Days #6 tablet Cholecalciferol [Vitamin D3 (25 Mcg = 1000 Iu)] 50 mcg PO DAILY #60 tablet Continue amLODIPine BESYLATE/BENAZEPRIL [amLODIPine BESYLATE/BENAZEPRIL 5-10 mg] 2 tab PO DAILY Ascorbic Acid [Vitamin C] 1,000 mg PO DAILY #30 tab Zinc 50 mg PO DAILY #30 tab Multivitamins, Thera [Multivitamin (formulary)] 1 tab PO DAILY Omeprazole [PriLOSEC] 20 mg PO AC-BID Ferrous Sulfate [Iron (65 MG Elemental)] 325 mg PO DAILY Discontinued Sildenafil Citrate [Viagra] 50 mg PO DAILY PRN PRN Reason: E.D. Naproxen 500 mg PO BID Discharge Medication List Ferrous Sulfate [Iron (65 MG Elemental)] 325 mg PO DAILY 01/07/21 [History] Multivitamins, Thera [Multivitamin (formulary)] 1 tab PO DAILY 01/07/21 [History] Omeprazole [PriLOSEC] 20 mg PO AC-BID 01/07/21 [History] amLODIPine BESYLATE/BENAZEPRIL [amLODIPine BESYLATE/BENAZEPRIL 5-10 mg] 2 tab PO DAILY 01/07/21 [History] Ascorbic Acid [Vitamin C] 1,000 mg PO DAILY #30 tab 01/11/21 [Rx] Cefuroxime Axetil [Ceftin] 500 mg PO BID 7 Days #14 tab 01/11/21 [Rx] Cholecalciferol [Vitamin D3 (25 Mcg = 1000 Iu)] 50 mcg PO DAILY #60 tablet 01/11/21 [Rx] Dexamethasone [Decadron] 6 mg PO DAILY 6 Days #6 tablet 01/11/21 [Rx] Zinc 50 mg PO DAILY #30 tab 01/11/21 [Rx] Follow up Appointment(s)/Referral(s): Porfirio Lehman MD [STAFF PHYSICIAN] - 02/08/21 9:30 am Sunitha Omer [NON-STAFF] - As Needed (oxygen ) [facility] [Primary Care Provider] - 02/07/21 3:00 pm Patient Instructions/Handouts: Coronavirus Disease 2019 (COVID-19) Activity/Diet/Wound Care/Special Instructions: Heart healthy diet Activity is restricted till you see your doctor Discharge Disposition: HOME SELF-CARE
== END 2021-01-11 14:48 | disposition home or self-care (01) | DRG 177 ==
LOC: EC 12:27 → 4SSUR 14:52
PROVIDERS: ADMIT Hospitalist; ATTEND Hospitalist
DX: U07.1 COVID-19 (principal); J12.82 Pneumonia due to coronavirus disease 2019; J96.01 Acute respiratory failure with hypoxia; R04.2 Hemoptysis; E87.6 Hypokalemia; I10 Essential (primary) hypertension; Z20.822 Contact with and (suspected) exposure to COVID-19; Z79.01 Long term (current) use of anticoagulants; Z82.5 Family history of asthma and other chronic lower respiratory diseases; Z87.891 Personal history of nicotine dependence; K21.9 Gastro-esophageal reflux disease without esophagitis
CPT/HCPCS: 36415; 71045; 80048; 80053; 82728; 83605; 83615; 83735; 84145; 85025; 85379; 85610; 85730; 86140; 87070; 87205; 87635; 94760; 99285

== ENCOUNTER → 2021-06-12 | Outpatient (CLI) | payer OTHER ==
[2021-06-12 14:48] LABS: Basophils # (A) 0.03 X 10*3/uL (0.00-0.10); Basophils % (A) 0.4 %; Eosinophils % (A) 2.7 %; HCT 45.5 % (39.6-50.0); HGB 15.4 g/dL (13.0-17.0); Immature Grans, Automated 0.7 %; Lymphocytes # (A) 1.48 X 10*3/uL (0.90-5.00); Lymphocytes % (A) 19.8 %; MCH 32.2 pg (27.0-32.0); MCHC 33.8 g/dL (32.0-37.0); Monocytes # (A) 0.63 X 10*3/uL (0.20-1.00); Monocytes % (A) 8.4 %; NRBC Per 100 WBC 0 /100 WBCS (0.0-0.0); Neutrophils # (A) 5.09 X 10*3/uL (1.80-7.70); Platelet Count 179 X 10*3/uL (140-440); RBC 4.79 X 10*6/uL (4.40-5.60); RDW 12.1 % (11.5-14.5); WBC 7.48 X 10*3/uL (4.50-10.00)
[2021-06-12 15:12] LABS: Albumin 4.2 g/dL (3.8-4.9); Albumin/Globulin Ratio 1.6 (1.60-3.17); Anion Gap 11.3 mmol/L (10.00-18.00); BUN/Creat Ratio 11.03 Ratio (12.00-20.00); Blood Urea Nitrogen 13.9 mg/dL (9.0-27.0); Calcium 9.3 mg/dL (8.7-10.3); Carbon Dioxide 25.2 mmol/L (20.0-27.5); Globulin 2.6 g/dL (1.6-3.3); Non-African American GFR(CKD) 65.6 (60.0-200.0); Potassium 3.8 mmol/L (3.5-5.5); T4, Free (Free Thyroxine) 1.08 ng/dL (0.800-1.800); Total Bilirubin 0.7 mg/dL (0.30-1.20); Total Protein 6.9 g/dL (6.2-8.2)
== END | disposition home or self-care (01) ==
LOC: LABWHC1 08:58
PROVIDERS: ATTEND Psychiatry & Neurology Neurology
DX: E53.9 Vitamin B deficiency, unspecified (principal); E55.9 Vitamin D deficiency, unspecified; G43.909 Migraine, unspecified, not intractable, without status migrainosus; H53.9 Unspecified visual disturbance; R41.3 Other amnesia
CPT/HCPCS: 36415; 80053; 82306; 82607; 84207; 84439; 84443; 84480; 84481; 85025

== ENCOUNTER → 2021-09-27 | Outpatient (CLI) | payer OTHER | END | disposition home or self-care (01) | LOC: LABPRL 20:25 → LABYALE 20:25 → EDSTATUS 20:37 | PROVIDERS: ATTEND Nurse Practitioner Acute Care | DX: E87.5 Hyperkalemia (principal); E78.5 Hyperlipidemia, unspecified | CPT/HCPCS: 84132 ==

== ENCOUNTER → 2021-11-06 | Outpatient (CLI) | payer OTHER ==
--- NOTE | 2021-11-06 16:44 | CT ---
CT CHEST FOR PULMONARY EMBOLISM. EXAMINATION TYPE: CT angio chest DATE OF EXAM: 11/06/2021 INDICATION: Other forms of dyspnea CT DLP: 631 mGycm, Automated exposure control for dose reduction was used. CONTRAST: Patient injected with 100 ml mL of Isovue 370. COMPARISON: None TECHNIQUE: CT of the chest is performed on a spiral scan at 2 mm thick sections. Study is performed with intravenous contrast timed for evaluation for pulmonary embolism. This will limit additional po rtions of the evaluation. 3-D MIP images reconstructed by the technologist are reviewed on the compu ter in the coronal and sagittal planes. FINDINGS: No persistent filling defects are evident to suggest an acute pulmonary embolism. No mediastinal or hilar adenopathy enlarged by CT criteria is evident. The ascending aorta diameter at the level of the main pulmonary artery is 4.0 cm. The main pulmonary artery diameter at the bifur cation is 3.2 cm. There is some subtle posterior left midlung and mild posterior right midlung and nonspecific infiltra te. Consider subsegmental atelectasis. Atypical pneumonia edema can be considered. There is a small h iatal hernia present. Limited CT section through the upper abdomen are unremarkable. IMPRESSIONS: 1. No acute pulmonary embolism. 2. Minimal scattered peripheral infiltrates. Correlate for subsegmental atelectasis or atypical pneum onia.
== END | disposition home or self-care (01) ==
LOC: RADCTMAIN 15:19
PROVIDERS: ATTEND Internal Medicine
DX: R91.8 Other nonspecific abnormal finding of lung field (principal)
CPT/HCPCS: 71275; Q9967

== ENCOUNTER 2021-12-02 10:50 | Day surgery (SDC) | payer OTHER ==
[~2021-12-02 10:50] MED LIST: DEXAMETHASONE SOD PHOSPHATE 4 MG/ML 1 ML VIAL IV ONE; HYDROmorphone 0.5 MG/0.5 ML SYRINGE IVP PRN; LACTATED RINGERS 1,000 ML IV SCH; ONDANSETRON 4 MG/2 ML VIAL IVP ONE; Pre Op ABX Message 1 EACH MISC MISCELLANE ONE
[2021-12-02] MEDS ORDERED: LIDOCAINE 1% (10MG/ML) FOR IV START INTRADERMA ONE (11:47)
[2021-12-02] MEDS ORDERED: LIDOCAINE 4% LTA KIT (4 ML) TOPICAL ONE (12:36)
[2021-12-02] MEDS ORDERED: fentaNYL (PF) 50 MCG/ML 2 ML AMP ONE (12:36)
[2021-12-02] MEDS ORDERED: PROPOFOL 10 MG/ML 20 ML VIAL IV ONE (12:36)
[2021-12-02] MEDS ORDERED: MIDAZOLAM 2 MG/2 ML VIAL ONE (12:36)
[2021-12-02] MEDS ORDERED: ceFAZolin 1,000 MG VIAL ONE (12:36)
[2021-12-02] MEDS ORDERED: ePHEDrine 50 MG/ML 1 ML VIAL ONE (12:36)
[2021-12-02] MEDS ORDERED: LIDOCAINE 2% INJ 20 MG/ML (2 ML VIAL) ONE (12:36)
[2021-12-02] MEDS ORDERED: SUCCINYLCHOLINE CHLORIDE 200 MG/10 ML VIAL IV ONE (12:36)
[2021-12-02] MEDS ORDERED: LIDOCAINE 1% INJ 10MG/ML (20 ML MDV) SQ ONE (12:53)
[2021-12-02] MEDS ORDERED: LIDOCAINE 1%-EPI 1:100,000 20 ML VIAL SQ ONE (12:53)
[2021-12-02] MEDS ORDERED: BUPIVACAINE (PF) 0.5% 30 ML VIAL SQ ONE (12:53)
[2021-12-02] MEDS ORDERED: SODIUM CHLORIDE 0.9% 100 ML with ceFAZolin 2,000 MG IV ONE ×2 (12:53)
[2021-12-02] MEDS ORDERED: LACTATED RINGERS 1,000 ML IV ONE (13:37)
[2021-12-02 14:03] VITALS: TEMP 98.2
--- NOTE | 2021-12-02 14:08 | P.OP ---
Date of Procedure: 12/02/21 Preoperative Diagnosis: 1. Left cubital tunnel syndrome 2. Left carpal tunnel syndrome Postoperative Diagnosis: Same Procedure(s) Performed: 1 left open cubital tunnel release 2. Left endoscopic carpal tunnel release Anesthesia: BEVERLY Surgeon: Hemalatha Infante [place] #1: Tyesha Rendon Estimated Blood Loss (ml): 10 Condition: stable Disposition: PACU Indications for Procedure: Nikhil is a 51-year-old male who has numbness and tingling of all of his digits on the left side. He is also noted that he starting to have some problems with coordination and fine motor skills. On examination he has a positive Tinel's in the carpal in the cubital tunnel. He has intrinsic wasting as well as some slight clawing of his ring and small finger. He has difficulty with crossing his fingers but a negative Wartenberg sign. He does not have signs of atrophy in his thumb musculature. We discussed his treatment options and he would like to proceed with release of both his cubital and carpal tunnel Description of Procedure: The patient, operative extremity, and procedure were identified in the preop holding area. After informed consent was obtained patient was brought back to the operating room where a local block was performed with 1% lidocaine with epi nephrine and half percent Marcaine. Following this the extremity was prepped and draped in normal sterile fashion. Formal timeout was performed and the tourniquet was inflated. Attention was first turned to the carpal tunnel. A transverse incision was made just ulnar to the palmaris longus tendon in the proximal wrist crease. Dissection was carried down to the forearm fascia which was released proximally about a centimeter. This incision was then utilized to access the carpal tunnel first with the scraping tool then with the micro-air cannula. The transverse carpal ligament was visualized in its entirety and there was no aberrant soft tissue within the cannula. The blade was deployed with several careful passes taken distally to ensure full release and finished in a retrograde fashion. The camera showed complete release of the transverse carpal ligament. Next attention was turned to the cubital tunnel. A longitudinal incision was made between the medial epicondyle and the olecranon process. Dissection was carried down to the FCU forearm fascia. The ulnar nerve was found in between the 2 heads of the FCU. The fascia overlying the FCU and the fascia beneath the FCU were released over the ulnar nerve. Dissection was carried proximally where the Dickinson's ligament was released over the ulnar nerve. All overlying tight bands were carefully released. Throughout this process cutaneous nerves were carefully protected. The ulnar nerve was followed a posterior to the intramuscular septum. Digital palpation revealed that there were no restrictions proximally. Tourniquet was then let down hemostasis was achieved and both wounds were closed with 4-0 Monocryl. Wounds were further dressed with skin glue and Steri-Strips. Tegaderm was applied over each wound and the arm was wrapped with an Srinivasan wrap. Patient was aroused by the anesthesia team and brought back to PACU in stable condition
[2021-12-02 14:43] VITALS: RESP 18
[2021-12-02 14:53] VITALS: BP 130/83; PULSE 89
== END 2021-12-02 15:04 | disposition home or self-care (01) ==
LOC: OR 10:50
PROVIDERS: ATTEND Orthopaedic Surgery Hand Surgery
DX: G56.02 Carpal tunnel syndrome, left upper limb (principal); G56.22 Lesion of ulnar nerve, left upper limb; I10 Essential (primary) hypertension; G47.33 Obstructive sleep apnea (adult) (pediatric); G25.81 Restless legs syndrome; K21.9 Gastro-esophageal reflux disease without esophagitis; Z79.899 Other long term (current) drug therapy; Z87.891 Personal history of nicotine dependence
CPT/HCPCS: 64718; 64721; J2250; J0330; J1100; J2405; J0690; J2001 ×2; J3010; J2704

== ENCOUNTER → 2022-04-29 | Outpatient (CLI) | payer OTHER ==
[2022-04-29 19:30] LABS: African American GFR (CKD) 74.8 (60.0-200.0); Albumin 4.3 g/dL (3.8-4.9); Anion Gap 10.3 mmol/L (10.00-18.00); BUN/Creat Ratio 11.57 Ratio (12.00-20.00); Blood Urea Nitrogen 14.7 mg/dL (9.0-27.0); Calcium 9.3 mg/dL (8.7-10.3); Non-African American GFR(CKD) 64.5 (60.0-200.0); Phosphorus 2.7 mg/dL (2.4-5.1); Potassium 4.3 mmol/L (3.5-5.5)
== END | disposition home or self-care (01) ==
LOC: LABWHC1 13:10
PROVIDERS: ATTEND Internal Medicine
DX: I50.9 Heart failure, unspecified (principal); R06.02 Shortness of breath
CPT/HCPCS: 36415; 80069; 83880

== ENCOUNTER → 2022-07-08 | Outpatient (CLI) | payer OTHER ==
--- NOTE | 2022-07-08 20:46 | CT ---
EXAMINATION TYPE: CT chest w con CT DLP: 538.8 mGycm, Automated exposure control for dose reduction was used. DATE OF EXAM: 07/08/2022 5:28 PM COMPARISON: CT 11/06/2021 CLINICAL INDICATION:Male, 51 years old with history of J44.9; COPD TECHNIQUE: Multiple axial images were obtained through the chest. Sagittal and coronal reformats were created for review. Contrast used:100ML mL of Isovue 300 with IV Contrast Oral contrast used: none. FINDINGS: LUNGS/ PLEURA: The lung parenchyma appears unremarkable. No focal consolidation, pneumothorax or ple ural effusion. AIRWAY: Patent and unremarkable. No evidence for bronchial wall thickening or dilation. HEART: Size within normal limits. MEDIASTINUM: No gross evidence of adenopathy. A moderate hiatal hernia is present.. VASCULATURE: No aortic aneurysm. No central filling defect within the pulmonary arterial vasculature to suggest pulmonary embolus. MUSCULOSKELETAL: No acute osseous abnormalities SOFT TISSUES/LYMPH NODES: Unremarkable. LOWER NECK: No significant findings. UPPER ABDOMEN: Cholelithiasis. IMPRESSION: 1. No evidence for significant COPD or emphysema. 2. No acute process. 3. Moderate hiatal hernia. 4. Cholelithiasis.
== END ==
LOC: CPPFTMAIN 15:56
PROVIDERS: ATTEND Family Medicine
DX: J44.9 Chronic obstructive pulmonary disease, unspecified (principal); K80.20 Calculus of gallbladder without cholecystitis without obstruction; K44.9 Diaphragmatic hernia without obstruction or gangrene
CPT/HCPCS: 94726; 94729; 94060; 71260; Q9967

== ENCOUNTER 2023-11-16 13:00 | Day surgery (SDC) | payer OTHER ==
[~2023-11-16 13:00] MED LIST changes: -DEXAMETHASONE SOD PHOSPHATE 4 MG/ML 1 ML VIAL IV ONE; -HYDROmorphone 0.5 MG/0.5 ML SYRINGE IVP PRN; +LACTATED RINGERS 1,000 ML BAG ONE; -LACTATED RINGERS 1,000 ML IV SCH; +LIDOCAINE 2% (PF) 20 MG/ML 5 ML VIAL ONE; -ONDANSETRON 4 MG/2 ML VIAL IVP ONE; +PROPOFOL 10 MG/ML 20 ML VIAL IV ONE; -Pre Op ABX Message 1 EACH MISC MISCELLANE ONE
--- NOTE | 2023-11-27 15:52 | PCN ---
PROCEDURE NOTE PROCEDURES PERFORMED: 1. Esophagogastroduodenoscopy. 2. Colonoscopy. PREOPERATIVE DIAGNOSES: 1. Antral gastritis. 2. Gastroesophageal reflux disease. 3. Screening colonoscopy. POSTOPERATIVE DIAGNOSES: 1. Hiatal hernia. 2. Esophagitis. 3. Diverticulosis. ANESTHESIA: MAC. DESCRIPTION OF PROCEDURE: The patient was placed on the endoscopy table in a lateral position. He received IV sedation. The gastroscope was placed in the oropharynx, passed through the esophagus and stomach. The scope was placed through the pylorus. The first and second portions of the duodenum appeared normal. The scope was then brought back to the antrum, and this appeared mildly inflamed. A biopsy was performed. The scope was then retroflexed and remainder of the stomach appeared normal. The patient had a sliding hiatal hernia. The GE junction was at 38 cm. The distal esophagus appeared inflamed. A biopsy was performed. The proximal esophagus appeared normal. Scope was withdrawn from the patient. Next, digital rectal exam was performed. This revealed no abnormalities. The flexible colonoscope was then placed into anus and passed throughout the entire colon. The ileocecal valve was visualized. The cecum, ascending and transverse colon appeared normal. The descending and sigmoid colon appeared normal except for few diverticula. The scope was then brought back to the rectum, and this appeared normal. The scope was withdrawn from the patient. MMODL / IJN: [id number] /
== END 2023-11-16 13:53 ==
LOC: ORWHC2ENDO 13:00
PROVIDERS: ATTEND Surgery
DX: Z12.11 Encounter for screening for malignant neoplasm of colon (principal); K21.00 Gastro-esophageal reflux disease with esophagitis, without bleeding; E78.5 Hyperlipidemia, unspecified; K44.9 Diaphragmatic hernia without obstruction or gangrene; K57.30 Diverticulosis of large intestine without perforation or abscess without bleeding; K29.70 Gastritis, unspecified, without bleeding; Z79.899 Other long term (current) drug therapy
CPT/HCPCS: 43239; 45378

== ENCOUNTER 2023-12-09 07:44 | Day surgery (SDC) | payer OTHER ==
[~2023-12-09 07:44] MED LIST changes: -LACTATED RINGERS 1,000 ML BAG ONE; +LIDOCAINE 1% (10MG/ML) FOR IV START INTRADERMA PRN; -LIDOCAINE 2% (PF) 20 MG/ML 5 ML VIAL ONE; -PROPOFOL 10 MG/ML 20 ML VIAL IV ONE
[2023-12-09] MEDS: IV FLUID CONTINUATION 1,000 ML IV ONE (08:03)
[2023-12-09 08:37] LABS: Basophils % (A) 0 %; Eosinophils # (A) 0.1 k/uL (0-0.7); Eosinophils % (A) 2 %; HCT 37.7 % (39.0-53.0); HGB 12.2 gm/dL (13.0-17.5); Hypochromasia Moderate; Lymphocytes # (A) 1.4 k/uL (1.0-4.8); Lymphocytes % (A) 23 %; MCH 25.7 pg (25.0-35.0); MCHC 32.4 g/dL (31.0-37.0); MCV 79.2 fL (80.0-100.0); Mean Platelet Volume 7.8; Monocytes # (A) 0.5 k/uL (0-1.0); Monocytes % (A) 9 %; Neutrophils # (A) 3.8 k/uL (1.3-7.7); Neutrophils % (A) 64 %; Platelet Count 184 k/uL (150-450); RBC 4.75 m/uL (4.30-5.90); RDW 15.7 % (11.5-15.5)
[2023-12-09] MEDS: ACETAMINOPHEN TAB 500 MG TAB PO PRN (08:40)
[2023-12-09] MEDS: HEPARIN SODIUM,PORCINE 5,000 UNIT/ML 1 ML VIAL SQ PRN (08:41)
[2023-12-09] MEDS: ONDANSETRON 4 MG/2 ML VIAL IVP ONE (08:41)
[2023-12-09] MEDS: SCOPOLAMINE 1 MG/72 HR PATCH TRANSDERM STA (08:41)
[2023-12-09] MEDS: DEXAMETHASONE SOD PHOSPHATE 4 MG/ML 1 ML VIAL IVP STA (08:42)
[2023-12-09] MEDS: LACTATED RINGERS 1,000 ML IV SCH ×2 (08:43→15:07)
[2023-12-09 08:54] LABS: African American GFR (CKD) 89 (>60 ml/min/1.73 sqM); Anion Gap 5 mmol/L; Blood Urea Nitrogen 12 mg/dL (9-20); Calcium 9.1 mg/dL (8.4-10.2); Carbon Dioxide 27 mmol/L (22-30); Chloride 109 mmol/L (98-107); Glucose 80 mg/dL (74-99); Non-African American GFR(CKD) 77 (>60 ml/min/1.73 sqM); Potassium 3.5 mmol/L (3.5-5.1); Sodium 141 mmol/L (137-145)
[2023-12-09] MEDS: LIDOCAINE 1%-EPI 1:100,000 20 ML VIAL SQ ONE ×2 (09:28→10:35)
[2023-12-09] MEDS ORDERED: LIDOCAINE 1% INJ 10MG/ML (20 ML MDV) ONE (10:05)
[2023-12-09] MEDS ORDERED: ePHEDrine 50 MG/ML 1 ML VIAL ONE (10:05)
[2023-12-09] MEDS ORDERED: PROPOFOL 10 MG/ML 20 ML VIAL IV ONE (10:05)
[2023-12-09] MEDS ORDERED: PHENYLEPHRINE-0.9% NACL SYG 1,000 MCG/10 ML SYRINGE ONE (10:05)
[2023-12-09] MEDS ORDERED: SUGAMMADEX SODIUM 200 MG/2 ML SDV IV ONE (10:05)
[2023-12-09] MEDS ORDERED: MIDAZOLAM 2 MG/2 ML VIAL ONE (10:05)
[2023-12-09] MEDS ORDERED: fentaNYL (PF) 50 MCG/ML 2 ML AMP ONE (10:05)
[2023-12-09] MEDS ORDERED: ROCURONIUM 10 MG/ML (5 ML VIAL) IV ONE (10:05)
[2023-12-09] MEDS ORDERED: SUCCINYLCHOLINE CHLORIDE 200 MG/10 ML VIAL IV ONE (10:05)
[2023-12-09] MEDS ORDERED: ONDANSETRON 4 MG/2 ML VIAL IVP PRN (11:10)
--- NOTE | 2023-12-09 11:10 | P.OP ---
Date of Procedure: 12/09/23 Preoperative Diagnosis: Gerd Postoperative Diagnosis: Gerd Hiatal hernia Procedure(s) Performed: Laparoscopic Henrik fundoplication Anesthesia: BEVERLY Surgeon: Jt Handy Estimated Blood Loss (ml): 5 Pathology: none sent Condition: stable Disposition: PACU Description of Procedure: Alejandro the patient was placed on the operating table in the supine position. The patient received general anesthesia. And was placed in dorsal lithotomy position. The patient was prepped and draped in the usual sterile fashion. The skin incision sites were anesthetized with 1% local Xylocaine. The skin was incised in the left periumbilical area and then using a blade less 5 mm trocar under direct visualization panel cavity was entered. After adequate insufflation the laparoscope was then placed into the peritoneal cavity. Next a 5 mm trochars placed in the right epigastric position. Another 5 millimeter trocar the right lateral position. Another 5 millimeter trocar in the left lateral position a 5 mm trocar is placed in the left epigastric position. And then the initial 5 mm trocar was exchanged for a 10 mm trocar. The left lateral lobe liver was retracted. The hernia was seen. The crural defect was then dissected using the Harmonic scissors device. A 360 crural dissection was performed the esophagus stomach was reduced back into the peritoneal Cavity. The crural defect was then closed using 2-0 Ethibond suture. Next the fundus of the stomach was mobilized using the Freeman scissors device. and then a 58- Botswanan bougie dilator was placed oropharynx passed into the esophagus and stomach the fundal plication wrap was then performed by grasping the fundus posteriorly and bringing it around the esophagus and stomach fundoplication was then performed using 2-0 Ethibond suture. Care was taken that the fundal location rested over top of the intra-abdominal esophagus. There was no injury seen to the stomach or esophagus. The dilator was then withdrawn. The abdomen was irrigated there is no bleeding seen. The trochars were then withdrawn and then skin incision sites were closed using 3-0 Monocryl suture Steri-Strips are applied. Patient thought procedure well and sent to recovery room in stable condition.
[2023-12-09] MEDS: HYDROmorphone 0.5 MG/0.5 ML SYRINGE IVP PRN (11:35)
[2023-12-09] MEDS: droPERidol 5 MG/2 ML VIAL IVP ONE (11:51)
[2023-12-09] MEDS: METOCLOPRAMIDE 5 MG/ML 2 ML VIAL IVP SCH (16:45)
[2023-12-09] MEDS: D5-0.45% NACL WITH KCL 20MEQ/L 1,000 ML IV SCH (17:07)
[2023-12-09] MEDS: HYDROmorphone 1 MG/ML 1 ML SYRINGE IVP PRN (18:38)
[2023-12-09] MEDS ORDERED: clonazePAM 0.5 MG TAB PO PRN (20:47)
[2023-12-09] MEDS: PRAZOSIN 1 MG CAP PO SCH (21:54)
[2023-12-09] MEDS: PREGABALIN 75 MG CAP PO SCH (21:55)
--- NOTE | 2023-12-10 00:28 | CONS ---
CONSULTATION HISTORY OF PRESENT ILLNESS: Status post Henrik surgery. He is having a lot of gas in his chest. Remains on his hypertension medicines, his neuropathy medications, current medications, breathing treatments for his breathing. He wears oxygen at night. He is wearing this currently. HOME MEDICINES: 1. Klonopin 0.5 at night. 2. Amlodipine/benazepril 5/10 two tabs daily. 3. Zinc 50 mg daily. 4. Lyrica 150 t.i.d. 5. Prazosin 1 mg at night. 6. Qsymia 7.5 one q.a.m. 7. Protonix 40 b.i.d. 8. Naprosyn 500 daily. 9. DuoNeb q.i.d. 10.Breztri inhaler 2 puffs b.i.d. 11.Ashwagandha. 12.Vitamin C. 13.Ventolin inhaler. PHYSICAL EXAMINATION: VITAL SIGNS: O2 is 95% on room air. Blood pressure is 150s over 80s, pulse 72, his oxygen has been 87% to 89%, now it is up to 95%. We started his home medicines. Prognosis guarded. Continue current treatment. HEART: S1, S2. Skipping a little beat. Sinus arrhythmia. LUNGS: Decreased breath sounds. GI: Soft. ASSESSMENT: Status post Henrik surgery, chronic obstructive pulmonary disease, asthma, sleep apnea, hypertension. Continue current home medicines. Prognosis guarded. Ambulate as tolerated. Wean off oxygen as tolerated. Blood pressure medications ordered. Please see further orders. MMODL / IJN: [id number] /
[2023-12-10] MEDS ORDERED: HYDROcodone/APAP 5-325MG 1 EACH TAB PO PRN (07:57)
[2023-12-10 08:26] VITALS: BP 143/84; PULSE 97; RESP 17; TEMP 98
[2023-12-10] MEDS: ENOXAPARIN 40 MG/0.4 ML SYRINGE SQ SCH (08:57)
[2023-12-10] MEDS: lisinopriL 10 MG TAB PO SCH (08:58)
[2023-12-10] MEDS: amLODIPine 5 MG TAB PO SCH (08:58)
[2023-12-10] MEDS: NAPROXEN 250 MG TAB PO PRN (09:24)
--- NOTE | 2023-12-10 13:08 | P.DS ---
Providers Expected date of discharge: 12/10/23 Attending physician: Jt Handy Consults: 12/09/23 11:10 Consult Physician Routine Consulting Provider: Tahir Damon Consult Reason/Comments: Medical management Do you want consulting provider notified?: Yes Primary care physician: Tahir Damon Hospital Course: Discharge diagnosis 1. GERD 2. Hiatal hernia Hospital course This is a 53-year-old male with known history of GERD and hiatal hernia. He is status post laparoscopic Niesen fundoplication. Patient is tolerating diet. His pain is controlled. He is afebrile. He has been up and ambulating he is having flatus. He is stable for discharge. Please refer to chart for any further details. Physician Stock Checker note has been reviewed by physician. Signing provider agrees with the documented findings, assessment, and plan of care. Patient Condition at Discharge: Stable Plan - Discharge Summary Discharge Rx Participant: Yes New Discharge Prescriptions: New HYDROcodone/APAP 5-325MG [[place] 5-325] 1 tab PO Q6HR PRN 3 Days #12 tab PRN Reason: Pain Continue amLODIPine BESYLATE/BENAZEPRIL [amLODIPine BESYLATE/BENAZEPRIL 5-10 mg] 2 tab PO DAILY Fluticasone Propionate [Fluticasone Propionate [place] 50 mcg Nasal [place]] 2 sprays EA NOSTRIL DAILY PRN PRN Reason: allergies Ipratropium-Albuterol Nebulize [Duoneb 0.5 mg-3 mg/3 ml Soln] 3 ml INHALATION QID PRN PRN Reason: Shortness Of Breath Albuterol Inhaler [Ventolin Hfa Inhaler] 1 - 2 puff INHALATION Q6H PRN PRN Reason: Shortness Of Breath clonazePAM [KlonoPIN] 0.5 mg PO HS PRN PRN Reason: RLS Ashwagandha Root Extract [Ashwagandha] 500 mg PO DAILY Pregabalin [Lyrica] 150 mg PO TID Budesonide/Glycopyr/Formoterol [Breztri Aerosphere Inhaler] 2 puff INHALATION DAILY Zinc Gluconate [Zinc] 50 mg PO DAILY Ascorbic Acid [Vitamin C] 1,000 mg PO DAILY Naproxen [Naprosyn] 500 mg PO DAILY PRN PRN Reason: Pain Phentermine/Topiramate [Qsymia 7.5 mg-46 mg Capsule] 1 cap PO QAM Pantoprazole [Protonix] 40 mg PO BID Prazosin HCl 1 mg PO HS Discharge Medication List amLODIPine BESYLATE/BENAZEPRIL [amLODIPine BESYLATE/BENAZEPRIL 5-10 mg] 2 tab PO DAILY 01/07/21 [History] Budesonide/Glycopyr/Formoterol [Breztri Aerosphere Inhaler] 2 puff INHALATION DAILY 11/29/21 [History] Pregabalin [Lyrica] 150 mg PO TID 11/29/21 [History] Albuterol Inhaler [Ventolin Hfa Inhaler] 1 - 2 puff INHALATION Q6H PRN 12/04/23 [History] Ascorbic Acid [Vitamin C] 1,000 mg PO DAILY 12/04/23 [History] Ashwagandha Root Extract [Ashwagandha] 500 mg PO DAILY 12/04/23 [History] Fluticasone Propionate [Fluticasone Propionate [place] 50 mcg Nasal [place]] 2 sprays EA NOSTRIL DAILY PRN 12/04/23 [History] Ipratropium-Albuterol Nebulize [Duoneb 0.5 mg-3 mg/3 ml Soln] 3 ml INHALATION QID PRN 12/04/23 [History] Naproxen [Naprosyn] 500 mg PO DAILY PRN 12/04/23 [History] Pantoprazole [Protonix] 40 mg PO BID 12/04/23 [History] Phentermine/Topiramate [Qsymia 7.5 mg-46 mg Capsule] 1 cap PO QAM 12/04/23 [History] Prazosin HCl 1 mg PO HS 12/04/23 [History] Zinc Gluconate [Zinc] 50 mg PO DAILY 12/04/23 [History] clonazePAM [KlonoPIN] 0.5 mg PO HS PRN 12/04/23 [History] HYDROcodone/APAP 5-325MG [[place] 5-325] 1 tab PO Q6HR PRN 3 Days #12 tab 12/10/23 [Rx] Follow up Appointment(s)/Referral(s): Jt Handy MD [STAFF PHYSICIAN] - 1 Week Activity/Diet/Wound Care/Special Instructions: No driving while taking [place] No lifting over 10 pounds Shower daily. No soaking or tub baths for 2 weeks Very light activity until you are reevaluated at your follow up appointment with your surgeon Straws or carbonated beverages Continue a full liquid diet for the next 2 weeks Discharge Disposition: HOME SELF-CARE
[2023-12-10 13:26] VITALS: BMI 33.0
[2023-12-10] MEDS ORDERED: FLUTICASONE NASAL 50MCG/SPRAY 16GM BTL EA NOSTRIL PRN (14:11)
[2023-12-10] MEDS ORDERED: IPRATROPIUM-ALBUTEROL 3 ML NEB INHALATION PRN (14:11)
--- NOTE | 2023-12-10 15:18 | PN ---
PROGRESS NOTE SUBJECTIVE: This is a 53-year-old, status post Lorenzo procedure. Med rec done. The patient is stable for discharge. He has had gas pain overnight in his abdomen, but feels better now. OBJECTIVE: VITAL SIGNS: Temperature 98, blood pressure 143/84, O2 saturation of 94% on room air, pulse ox is 95, and respiratory rate 16 to 18. CARDIOVASCULAR: S1 and S2. LUNGS: Transmitted upper sounds. GI: Soft. Nontender. HEMATOLOGY: Negative Homans. PSYCH: Fair mood and affect. PLAN: Continue current treatment. Possibly discharge home. He is at 94 on room air. He will go home with his home medications. Prognosis guarded. Followup as an outpatient. MMODL / IJN: [id number] /
[2023-12-10] MEDS ORDERED: PANTOPRAZOLE 40 MG TABLET PO SCH (21:00)
[2023-12-11] MEDS ORDERED: IPRATROPIUM 0.5 MG/2.5 ML NEBU INHALATION SCH (08:00)
[2023-12-11] MEDS ORDERED: SYMBICORT 160-4.5 MCG INHALER INHALATION SCH (08:00)
[2023-12-11] MEDS ORDERED: ZINC SULFATE 220 MG CAP PO SCH (09:00)
[2023-12-11] MEDS ORDERED: ASCORBIC ACID 500 MG TAB PO SCH (09:00)
== END 2023-12-10 14:33 | disposition home or self-care (01) ==
LOC: OR 07:44 → 4SSUR 11:04 → OR 12-10 14:33
PROVIDERS: ATTEND Surgery
DX: K44.9 Diaphragmatic hernia without obstruction or gangrene (principal); K21.9 Gastro-esophageal reflux disease without esophagitis; I10 Essential (primary) hypertension; J44.89 Other specified chronic obstructive pulmonary disease; G62.9 Polyneuropathy, unspecified; G47.30 Sleep apnea, unspecified; Z99.81 Dependence on supplemental oxygen
CPT/HCPCS: 80048; 85025

== ENCOUNTER → 2024-01-20 | Outpatient (CLI) | payer OTHER ==
--- NOTE | 2024-01-20 08:15 | US ---
EXAMINATION TYPE: US gallbladder DATE OF EXAM: 01/20/2024 COMPARISON: CT Chest 07/08/22 showed cholelithiasis. CLINICAL INDICATION: Male, 53 years old with history of R10.0 ABD PAIN; Abdominal pain TECHNIQUE: Grayscale and color Doppler imaging of the right upper quadrant. FINDINGS: EXAM MEASUREMENTS: Liver Length: 16.9 cm Gallbladder Wall: 0.24 cm CBD: 0.35 cm Right Kidney: 11.5 x 6.7 x 6.7 cm MACHINE SHOP SPECIALIST NOTES: Exam is limited due to gas. Pancreas: Obscured. Liver: Very coarse/heterogeneous with increased echogenicity. -Hypoechoic area seen adjacent to the gallbladder= 2.0 x 2.5 x 1.1 cm. Gallbladder: *Hyperechoic focus with posterior shadowing seen within: 0.9 x 1.2 x 1.2 cm. Evidence for sonographic Banda's sign: No CBD: Portions seen appear wnl Right Kidney: No hydronephrosis or masses seen IMPRESSION: 1. No evidence for acute process. 2. Hepatic steatosis with focal fatty sparing around the gallbladder fossa. 3. Cholelithiasis. [facility], , 01/20/2024 8:13 AM
== END ==
LOC: RADUSWWP 07:22
PROVIDERS: ATTEND Surgery
CPT/HCPCS: 76705

== ENCOUNTER → 2024-01-22 | Outpatient (CLI) | payer OTHER ==
--- NOTE | 2024-01-22 10:18 | NM ---
Nuclear medicine hepatobiliary scan. HISTORY: Pain. DOSAGE: The patient received 8 0z Ensure plus and 5.2 mCi of Technetium 99m Choletec. FINDINGS: There is normal hepatic extraction. The gallbladder is seen by 55 minutes. There is bilia ry to bowel clearance by 20 minutes. Ejection fraction is -24%. IMPRESSION: 1. Limited filling of the gallbladder at 55 minutes with abnormal ejection fraction. Could be 0n the basis biliary dyskinesia. Correlate clinically. [facility], , 01/22/2024 10:15 AM
== END | disposition home or self-care (01) ==
LOC: RADNMMAIN 06:54
PROVIDERS: ATTEND Surgery
DX: R10.9 Unspecified abdominal pain (principal)
CPT/HCPCS: 78227